=== PATIENT | female | born 1975 | race Hispanic/Latino ===

== ENCOUNTER → 2019-08-29 | Outpatient (CLI) | payer OTHER | LOC: MAMMO 11:55 | PROVIDERS: ATTEND Obstetrics & Gynecology | DX: Z12.31 Encounter for screening mammogram for malignant neoplasm of breast (principal) | CPT/HCPCS: 77067 ==

== ENCOUNTER → 2019-09-13 | Outpatient (CLI) | payer OTHER ==
--- NOTE | 2019-09-14 09:18 | Diagnostic Imaging Report ---
#[id number] - MGDXBIL #BILATERAL DIGITAL DIAGNOSTIC MAMMOGRAM WITH CAD: 09/13/2019 Comparison is made to exam dated: 08/29/2019 mammogram - [facility]. Current study contains 6 films. The tissue of both breasts is heterogeneously dense. This may lower the sensitivity of mammography. Current study was also evaluated with a Computer Aided Detection (CAD) system. Additional views demonstrate no underlying abnormality. No significant masses, calcifications, or other findings are seen in either breast. IMPRESSION: BENIGN See the report for ultrasound performed the same day for additional details. There is no mammographic evidence of malignancy. A 1 year screening mammogram is recommended. The patient will be notified by letter of the results. PORSHA GARCIA M.D. ct/penrad:09/13/2019 13:36:37 Chicken Cleaner: Katherine ROSAS)(Ayanna), [facility] letter sent: Normal Exam Mammogram BI-RADS: 2 Benign
--- NOTE | 2019-09-14 09:18 | Diagnostic Imaging Report ---
#[id number] - USBRELIMLT ULTRASOUND OF THE LEFT BREAST : 09/13/2019 Comparison is made to exams dated: 09/13/2019 mammogram and 08/29/2019 mammogram - [facility]. Real-time ultrasound was performed on the left breast. Scattered benign subcentimeter cysts are noted. There are no solid masses identified. IMPRESSION: BENIGN There is no sonographic evidence of malignancy. A 1 year screening mammogram is recommended. PORSHA GARCIA M.D. ct/penrad:09/13/2019 13:37:29 Transit Police Officer: [facility], [facility] letter sent: Normal Exam Ultrasound BI-RADS: 2 Benign
--- NOTE | 2019-09-14 09:18 | Diagnostic Imaging Report ---
#[id number] - USBRELIMRT ULTRASOUND OF THE RIGHT BREAST : 09/13/2019 Comparison is made to exams dated: 09/13/2019 mammogram and 08/29/2019 mammogram - [facility]. Real-time ultrasound was performed on the right breast. Scattered benign subcentimeter cysts are noted. There are no solid masses identified. IMPRESSION: BENIGN There is no sonographic evidence of malignancy. A 1 year screening mammogram is recommended. PORSHA GARCIA M.D. ct/penrad:09/13/2019 13:37:12 Car Dryer: [facility]Y [facility], [facility] letter sent: Normal Exam Ultrasound BI-RADS: 2 Benign
== END ==
LOC: MAMMO 08:28
PROVIDERS: ATTEND Obstetrics & Gynecology
DX: R92.2 Inconclusive mammogram (principal)
CPT/HCPCS: 77066